=== PATIENT | male | born 1950 | race Two or more races ===

== ENCOUNTER 2017-02-01 11:50 | Emergency (ER) | payer BC, MEDICARE ==
[~2017-02-01] VITALS: Ht 175.3 cm; Wt 127.3 kg
[2017-02-01] MEDS ORDERED: LORazepam 2 MG/ML, 1ML IVP ONE (12:30)
[2017-02-01] MEDS ORDERED: SODIUM CHLORIDE FLUSH 10ML SYR IVF ONE (12:30)
[2017-02-01 12:53] LABS: ASPARTATE AMINO TRANSFERASE 33 U/L (15-37); BLOOD UREA NITROGEN 16 mg/dL (7-18)
[2017-02-01 12:59] LABS: IS PT STATUS REG ER OR PRE ER? YES
[2017-02-01] MEDS ORDERED: WARF7.5T6 PO (15:15)
[2017-02-01] MEDS ORDERED: SIMV20TA3 PO (15:15)
[2017-02-01] MEDS ORDERED: WARF5TAB7 PO (15:15)
[2017-02-01] MEDS ORDERED: MULT-412 PO (15:16)
[2017-02-01 15:42] VITALS: BP 147/80
== END 2017-02-01 15:44 | disposition home or self-care (01) ==
LOC: ED 13:43
DX: R06.00 Dyspnea, unspecified (principal); Z79.01 Long term (current) use of anticoagulants
CPT/HCPCS: 36415; 71010; 78582; 80053; 83880; 84484; 85025; 85610; 85730; 93005; 99285; A9540; A9558